=== PATIENT | female | born 1965 | race African-American/Black ===

== ENCOUNTER 2024-06-15 09:15 | Emergency (ER) | payer OTHER, MEDICAID ==
[~2024-06-15] VITALS: Ht 165.1 cm; Wt 65.0 kg
[2024-06-15 09:20] VITALS: O2SAT 100
[2024-06-15] MEDS: FAMOTIDINE 20MG TABLET PO ONE (09:45)
[2024-06-15] MEDS: MAGNESIUM/ALUMINUM HYDROXIDE/SIMETHICONE 30ML UDC PO STA (09:45)
[2024-06-15] MEDS: ONDANSETRON 4MG ODT PO STA (10:05)
[2024-06-15] MEDS: ACETAMINOPHEN 325MG TABLET PO STA (10:05)
[2024-06-15 10:10] LABS: BASOPHILS % 0.8 % (0.0-2.0); DIFFERENTIAL COMMENT 0; EOSINOPHILS % 1.7 % (0.0-5.0); LYMPHOCYTES % 17.9 % (20.0-50.0); MEAN CORPUSCULAR HEMOGLOBIN 26.7 pg (28.0-32.0); MEAN CORPUSCULAR HGB CONC 31.8 g/dL (31.0-37.0); MEAN CORPUSCULAR VOLUME 84.2 fL (81.0-99.0); MEAN PLATELET VOLUME 11.2 fl (7.4-10.4); MONOCYTES % 8.1 % (2.0-8.0); NEUTROPHILS % 71.5 % (40.0-76.0); PLATELET 368 x1000/uL (130-400); RED BLOOD CELL COUNT 4.88 mill/uL (4.2-5.4); RED CELL DISTRIBUTION WIDTH 13.6 % (11.6-14.6); WHITE BLOOD COUNT 12.3 x1000/uL (4.5-11.0)
[2024-06-15 10:20] LABS: CHLORIDE 87 mEq/L (98-107); POTASSIUM 3.5 mEq/L (3.5-5.1); SODIUM 124 mEq/L (136-145)
[2024-06-15 10:21] LABS: CALCIUM 9.9 mg/dL (8.7-10.4); CARBON DIOXIDE 27 mEq/L (21-32)
[2024-06-15 10:26] LABS: CREATININE 1.4 mg/dL (0.6-1.0); UREA NITROGEN BLOOD 23 mg/dL (9-23)
[2024-06-15 10:28] LABS: ALANINE AMINOTRANSFERASE 10 IU/L (10-49); ALBUMIN 4.1 g/dL (3.2-4.8); ASPARTATE AMINOTRANSFERASE 12 IU/L (<34); BILIRUBIN DIRECT 0.2 mg/dL (<=3.0); BILIRUBIN TOTAL 0.7 mg/dL (0.1-1.0)
[2024-06-15 10:29] LABS: PROTEIN TOTAL 7.5 g/dL (6.0-8.3)
[2024-06-15 10:59] LABS: GLUCOSE 408 mg/dL (70-105)
[2024-06-15] MEDS: SODIUM CHLORIDE 0.9% 1,000 ML IV ONE (11:32)
[2024-06-15 11:39] LABS: CLARITY URINE CLEAR (CLEAR); COLOR URINE YELLOW (YELLOW); GLUCOSE URINE 3+ (NEGATIVE); KETONES URINE TRACE (NEGATIVE); LEUKOCYTE ESTERASE URINE NEGATIVE (NEGATIVE); NITRITE URINE NEGATIVE (NEGATIVE); OCCULT BLOOD URINE NEGATIVE (NEGATIVE); PH URINE 5.5 (4.5-8.0); PROTEIN URINE NEGATIVE (NEGATIVE)
[2024-06-15 12:11] LABS: HYALINE CASTS URINE 0-5 /lpf; SQUAMOUS EPITHELIAL CELL URINE 1+ /lpf (RARE/1+)
[2024-06-15 12:12] LABS: RBC URINE 0-2 /hpf (0-2); WBC URINE 0-2 /hpf (0-2)
[2024-06-15 12:13] LABS: BACTERIA URINE NONE SEEN
[2024-06-15 14:04] VITALS: BP 122/78; PULSE 78; RESP 18; TEMP 37.05852; O2SAT 98
== END 2024-06-15 14:04 | disposition home or self-care (01) ==
LOC: ER 09:15
DX: E11.65 Type 2 diabetes mellitus with hyperglycemia (principal); I10 Essential (primary) hypertension; Z98.890 Other specified postprocedural states
CPT/HCPCS: 99284; 74176; 96360; 96361; 80076; 80048; 81003; 82962; 83690; 85025; 36415; Q0162; J7030